=== PATIENT | female | born 1960 | race Caucasian/White ===

== ENCOUNTER → 2016-03-22 | Outpatient (CLI) | payer OTHER ==
--- NOTE | 2016-03-22 17:10 | MA ---
Bilateral Screening Digital Mammograms with iCAD Clinical Indications: Routine screening mammograms. Technique: Standard digital cephalocaudal and mediolateral oblique projections were obtained. This examination was processed by the iCAD computer-aided detection system. Comparison: February 2014 Breast density: Type B. Findings: There are no masses, no suspicious calcifications, and no secondary signs of malignancy. Impression: Negative mammograms. BI-RADS: 1 - Negative Recommendation: Routine screening mammograms in one year. Negative mammography should not preclude additional workup of a clinically suspicious finding.
== END ==
LOC: CIMAGING 10:50
DX: Z12.31 Encounter for screening mammogram for malignant neoplasm of breast (principal)
CPT/HCPCS: G0202

== ENCOUNTER → 2016-10-11 | Outpatient (CLI) | payer OTHER | LOC: CIMAGING 15:00 | PROVIDERS: ATTEND Nurse Practitioner Family | DX: M19.041 Primary osteoarthritis, right hand (principal); M19.042 Primary osteoarthritis, left hand | CPT/HCPCS: 73140-PO ==

== ENCOUNTER → 2017-08-29 | Outpatient (CLI) | payer OTHER | LOC: CIMAGING 14:59 | PROVIDERS: ATTEND Nurse Practitioner Family | DX: N95.0 Postmenopausal bleeding (principal) | CPT/HCPCS: 76856-PO ==